=== PATIENT | female | born 1935 | race African-American/Black ===

== ENCOUNTER → 2017-01-16 | Outpatient (CLI) | payer BC, MEDICARE | END | disposition home or self-care (01) | LOC: CARD 09:29 | PROVIDERS: ATTEND Psychiatry & Neurology Neurology | DX: G20 Parkinson's disease (principal) ==

== ENCOUNTER 2024-07-26 16:49 | Emergency (ER) | payer MEDICARE ==
[~2024-07-26] VITALS: Ht 160 cm; Wt 56.0 kg
[~2024-07-26 16:49] MED LIST: APIX5TAB MT; LIP40 MT; LOSA25TA26 MT; METO-539 MT
[2024-07-26 16:57] VITALS: O2SAT 97
[2024-07-26 17:51] LABS: CHLORIDE 108 mEq/L (98-107); POTASSIUM 4.7 mEq/L (3.5-5.1); SODIUM 140 mEq/L (136-145)
[2024-07-26 17:52] LABS: CARBON DIOXIDE 26 mEq/L (21-32)
[2024-07-26 17:53] LABS: BASOPHILS % 0.4 % (0.0-2.0); CALCIUM 9.2 mg/dL (8.7-10.4); EOSINOPHILS % 0.9 % (0.0-5.0); HEMATOCRIT. 41.6 % (36.0-48.0); HEMOGLOBIN. 13.8 g/dL (12.0-16.0); LYMPHOCYTES % 7.2 % (20.0-50.0); MEAN CORPUSCULAR HEMOGLOBIN 31.5 pg (28.0-32.0); MEAN CORPUSCULAR HGB CONC 33.2 g/dL (31.0-37.0); MEAN CORPUSCULAR VOLUME 94.8 fL (81.0-99.0); MEAN PLATELET VOLUME 8.2 fl (7.4-10.4); MONOCYTES % 5.4 % (2.0-8.0); NEUTROPHILS % 86.1 % (40.0-76.0); PLATELET 187 x1000/uL (130-400); RED BLOOD CELL COUNT 4.38 mill/uL (4.2-5.4); WHITE BLOOD COUNT 8.9 x1000/uL (4.5-11.0)
[2024-07-26 17:57] LABS: GLUCOSE 202 mg/dL (70-105); UREA NITROGEN BLOOD 22 mg/dL (9-23)
[2024-07-26 18:00] LABS: TROPONIN I HIGH SENSITIVITY 10 ng/L (3.0-34)
[2024-07-26 18:09] LABS: D-DIMER 0.37 mg/L FEU (<0.50); INR 1.1; PARTIAL THROMBOPLASTIN TIME 23.3 sec (23.4-31.0); PROTHROMBIN TIME 11.8 sec (9.6-11.0)
[2024-07-26] MEDS: FUROSEMIDE 40MG/4ML VIAL IVP ONE (18:58)
[2024-07-26] MEDS: MORPHINE SULFATE 2 MG/ML INJ (NOT FOR IM USE) IV ONE (19:00)
[2024-07-26 20:52] VITALS: TEMP 36.7
[2024-07-26 21:40] VITALS: BP 132/83; PULSE 106; RESP 18; O2SAT 99
== END 2024-07-26 22:36 | disposition short-term general hospital (02) ==
LOC: ER 16:49 → EDBEDREQ 17:22 → ER 22:36
DX: I50.9 Heart failure, unspecified (principal); I48.91 Unspecified atrial fibrillation; Z98.890 Other specified postprocedural states; Z79.899 Other long term (current) drug therapy
CPT/HCPCS: 80048; 83880; 85025; 85379; 85610; 85730; 84484; 36415; 71045; 93005; 96374; 96375; 99291; J1940; J2270; A4606

== ENCOUNTER 2024-09-11 18:29 | Emergency (ER) | payer MEDICARE ==
[~2024-09-11] VITALS: Ht 160 cm; Wt 53.0 kg
[2024-09-11 18:38] VITALS: O2SAT 99
[2024-09-11] MEDS: ACETAMINOPHEN 325MG TABLET PO ONE (19:59)
[2024-09-11 21:25] VITALS: BP 153/55; PULSE 50; RESP 16; TEMP 36.9; O2SAT 100
== END 2024-09-11 21:29 | disposition home or self-care (01) ==
LOC: ER 18:29
DX: S09.90XA Unspecified injury of head, initial encounter (principal); I48.91 Unspecified atrial fibrillation; W01.0XXA Fall on same level from slipping, tripping and stumbling without subsequent striking against object, initial encounter; Y93.89 Activity, other specified; Y92.89 Other specified places as the place of occurrence of the external cause; Y99.8 Other external cause status
CPT/HCPCS: 73130; 99284